=== PATIENT | female | born 1935 | race Caucasian/White ===

== ENCOUNTER 2021-08-14 16:21 | Inpatient (IN) | payer MEDICARE, OTHER ==
[~2021-08-14] VITALS: Ht 162.6 cm; Wt 97.3 kg
[2021-08-14] MEDS ORDERED: XARELTO15 MG PO (16:28)
[2021-08-14] MEDS ORDERED: TYLENOL 500MG500 MG PO (16:29)
[2021-08-14] MEDS ORDERED: DICLOFENAC SODIUM TOP (16:30)
[2021-08-14] MEDS ORDERED: DILTIAZEM HCL PO (16:31)
[2021-08-14] MEDS ORDERED: DULCOLAX STOOL100 MG PO (16:32)
[2021-08-14] MEDS ORDERED: FISH OIL PO (16:33)
[2021-08-14] MEDS ORDERED: LASIX 80MG TABL80 MG PO (16:33)
[2021-08-14] MEDS ORDERED: LASIX 40MG TABL40 MG PO (16:34)
[2021-08-14] MEDS ORDERED: TIROSINT112 MC1 PO (16:35)
[2021-08-14] MEDS ORDERED: ZESTRIL 10MG10 MG PO (16:36)
[2021-08-14] MEDS ORDERED: PRILOTC PO (16:37)
[2021-08-14] MEDS ORDERED: TOPROL XL 50MG50 MG PO (16:37)
[2021-08-14] MEDS ORDERED: POTASSIUM CHLORIDE PO ×2 (16:38→16:39)
[2021-08-14] MEDS ORDERED: ROSUVASTATIN PO (16:40)
[2021-08-14] MEDS ORDERED: XARELTO20 MG PO (16:41)
[2021-08-14] MEDS ORDERED: DETROL LA4 PO (16:41)
[2021-08-14 18:27] VITALS: BP 122/86; PULSE 84; TEMP 98.2
--- NOTE | 2021-08-14 19:19 | NUR ---
Pt. arrived to [facility] at approx 1800. She arrived via transportation bus and was in a wheelchair. Pt. transferred to bed in room using 2 person assistance and gait belt. Daughter and son-in-law at the bedside. Pt. is alert & oriented. Denies any pain. Admission assessment and intake completed. Dinner tray ordered by SCENE AND LIGHTING DESIGN LECTURER. Orientation to unit and room, call light, visiting policy provided to patient who verbalized understanding. She denies further needs at this time. Call light is within her reach
--- NOTE | 2021-08-14 19:30 | NUR ---
PT RESTING IN BED. SEE MAR FOR TYLENOL#3 GIVEN BY DUY PINEDA RN. FOR LT HIP PAIN. WAITING FOR EVENING MEAL TO COME. CALL LIGHT IN REACH. BED ALARM SET.
[2021-08-15 05:45] VITALS: BP 129/65; PULSE 86; TEMP 98.2
--- NOTE | 2021-08-15 06:04 | NUR ---
PT HAS SLEPT WELL THIS SHIFT. OFFERED PAIN MED- DECLINED. CECILIA CHANGED OUT THIS AM. URINE HAS BEEN SUFFICIENT QUANITIES/ CLEAR YELLOW.
--- NOTE | 2021-08-15 12:04 | NUR ---
Assessment completed, alert/oriented, vital signs stable, reports moderate left hip discomfort/ treating with Tylenol#3, left hip incision/wound has a wound vac in place, has multiple skin tears to BUE/ BLE and dressing in place per physician orders, TEODORO wraps to BLE for compression, using external femal cather while in bed for incontinence, she is a x1 assist up with walker, sitting up eating lunch in recline and just finished session with PT, denies needs
[2021-08-15 12:15] LABS: CALCIUM 8.8 mg/dL (8.4-10.2); CREATININE, serum 0.8 mg/dL (0.57-1.11); MAGNESIUM 2.1 mg/dL (1.6-2.6)
--- NOTE | 2021-08-15 14:42 | NUR ---
structural steel trades worker attempted to meet with patient x3. Unable to speak with patient to complete intake today. Will attempt tomorrow.
[2021-08-15 18:00] VITALS: BP 109/55; PULSE 86; TEMP 98.4
--- NOTE | 2021-08-15 18:48 | NUR ---
RECEIVED CHANGE OF SHIFT REPORT FROM DAY SHIFT RN.
--- NOTE | 2021-08-15 23:56 | NUR ---
HAD REPORTED FELT DISCOMFORT TO LLE "LIKE SOMETHING LEANING OR HITTING MY LEG". OBSERVED BED LINENS AND ICE BAG TO LATERAL L HIP IN CONTACT WITH LLE. SEE MAR FOR PAIN MED GIVEN. DENIES ANY OTHER NEEDS. PURE WICK IN PLACE, DRAINING CLEAR MED YELLOW URINE.
[2021-08-16 05:07] VITALS: BP 129/85; PULSE 92; TEMP 98.5
--- NOTE | 2021-08-16 05:32 | NUR ---
PURE WICK REMOVED, BRIEFS PLACED ON PATIENT, PATIENT INSTRUCTED TO CALL STAFF WHEN READY TO USE BATHROOM FACILITIES.
--- NOTE | 2021-08-16 07:00 | NUR ---
CHANGE OF SHIFT REPORT GIVEN TO DAY SHIFT RNORALIA.
--- NOTE | 2021-08-16 07:01 | NUR ---
Shift report recevied from concrete block layer RN. Pt. sleeping supine in bed. Call light is within her reach
--- NOTE | 2021-08-16 07:22 | NUR ---
Wound vac drainage collection is full. Serous, yellow drainage noted in collection chamber and in tubing. No additional wound vac supplies were given to pt. prior to d/c from [facility]. supervisor engine repair and M/S charge nurse aware. Will contact daughter.
--- NOTE | 2021-08-16 07:29 | NUR ---
Spoke with daughter, Val. She was not given any wound vac supplies prior to discharge. Will speak with Ashley upon her arrival
--- NOTE | 2021-08-16 08:06 | NUR ---
Pt. resting in bed. She has just completed her breakfast. She denies any pain. Last dose of pain med was given around 3 hours ago. She denies nausea. Wound vac drainage system remains full. Jeovany wraps to BLE are CDI; BLE elevated on pillows. Pt. denies further needs at this time. Call light is within her reach
--- NOTE | 2021-08-16 09:49 | NUR ---
Spoke with [facility]; they would like to continue Wound Vac for pt. IPR webbing supervisor will warp picker replacement wound vac this afternoon and bring back to pt.
--- NOTE | 2021-08-16 10:19 | NUR ---
Pt. assisted back to bed from recliner. She denies pain or discomfort at this time. Dressings and robert wrap to BLE are CDI. Left leg elevated on pillow. She denies further needs at this time. Call light is within her reach
--- NOTE | 2021-08-16 10:25 | NUR ---
donation worker met with patient to complete intake. Patient reports that she lives in a low income housing area in [facility]. Her home is a single level with her biggest complaint being her tub/shower. States that she has a hard time with this and that she and a few other tenants of the complex have spoken with the management staff about converting their tubs to walk in showers but that "they haven't gotten anywhere". Patient reports that prior to her fall she was independent with her ADL's and utilizes a cane to assist with ambulation. Patient reports to having no home oxygen needs but she is currently on 1.5 L during interaction. This appears to be reduced from yesterday. PCP is Dr. Walton and she utilizes [facility] for medications with no cost difficulty. Patient states that she does have a DPOA-HC established listing her daughter Val ([phone]). Unable to locate a copy in the patients EMR or her chart. Spoke with the patient about PT's recommendation at this time of going home with HH services. Patient reports that she has never had HH before but is open to the idea. SW informed patient that a list of agencies that service [place] will be provided to her closer to discharge.
[2021-08-16 10:47] LABS: MEAN CELL VOLUME 98 fl (80.0-100.0); MEAN CORPUSCULAR HGB CONC 32 g/dl (33.0-37.0); MEAN PLATELET VOLUME 10.1 fl (7.4-10.4); PLATELET COUNT 294 K/mm3 (130-400); RED BLOOD COUNT 3.13 M/mm3 (4.10-5.30); REDCELL DISTRIBUTION WIDTH-CV 13.9 % (11.5-14.5)
[2021-08-16 10:50] LABS: HEMATOCRIT 30.8 % (37.0-47.0); HEMOGLOBIN 9.8 g/dl (12.5-16.0); MEAN CORPUSCULAR HEMOGLOBIN 31 pg (27-31)
[2021-08-16 10:52] LABS: CALCIUM 8.5 mg/dL (8.4-10.2); CREATININE, serum 0.72 mg/dL (0.57-1.11); POTASSIUM 3.9 mmol/L (3.5-4.5)
[2021-08-16 11:09] LABS: BAND 1 % (0-10); LYMPHOCYTE 15 % (20.0-51.0); NEUTROPHILS 73 % (42.0-75.2); NUCLEATED RED BLOOD CELL 1 (0-6)
[2021-08-16 11:12] LABS: HYPOCHROMIA 2+; PLATELET ESTIMATE NORMAL (NORMAL)
[2021-08-16 11:15] LABS: BURR CELLS 1+
--- NOTE | 2021-08-16 11:44 | NUR ---
Pt. is back in her room after PT. She is resting in her recliner with both feet elevated. Jeovany wraps to BLE are CDI. She denies pain currently but would "maybe" like something for pain after her afternoon PT session. Ice pack placed to left hip. Pt. denies further needs at this time. Call light is within her reach
--- NOTE | 2021-08-16 14:02 | NUR ---
Pt. assisted from recliner to bed. She has completed all therapies for the day. She reports feeling tired. PRN pain medication and ice pack to left hip given. She denies any further needs at this time. Call light is within her reach
--- NOTE | 2021-08-16 16:18 | NUR ---
Pt. resting in bed with left leg elevated on pillow. Pt. repositioned for pressure relief. She denies pain or discomfort at this time. She continues with ice application to left hip. Wound vac container leaking serous fluid. Pt. denies further needs at this time
--- NOTE | 2021-08-16 17:05 | NUR ---
Left hip incision orders received per [facility] recommendations. Wound vac removed from left hip. 30 intact verito noted. Incision looks well approximated. No redness, swelling, warmth. Incision site cleaned with wound cleanser. Two 4x4 dressings & abd pad applied over stapled incision. Dressing secured with foam tape. Wound vac cover cleaned & placed with pt. belongings. Unable to measure amt of drainage in collection chamber as the drainage appeared crystallized.
[2021-08-16 17:37] VITALS: BP 122/66; PULSE 96; TEMP 98.2
[2021-08-17 05:25] VITALS: BP 115/69; PULSE 99; TEMP 97.9
--- NOTE | 2021-08-17 06:35 | NUR ---
ASSUMED CARE OF PATIENT AFTER RECEIVING BEDSIDE REPORT. PATIENT RESTING COMFORTABLY IN BED. PATIENT DENIES PAIN. PUREWICK PLACED FOR OVERNIGHT TO PREVENT SKIN BREAK DOWN, PATIENT TOLERATED WELL. DRESSING REMAINED CLEAN, DRY, AND INTACT OVER NIGHT, PREVEENA WAS NOT REPLACED AT THE TIME OF THIS NOTE. BEDSIDE REPORT TO BE GIVEN TO ONCOMING SHIFT.
--- NOTE | 2021-08-17 16:00 | NUR ---
Received report from hourly shift. Patient alert and oriented. Patient felt dizzy, clammy, and ill during therapy. Patient was returned to room and placed on toilet. Patient's vital signs and blood sugar taken. Both WNL. Patient was placed in bed. Leg wraps changed. Patient has +3 edema in BLE. Patient's skin has multiple skin tears on upper and lower extremities. Changed patient's dressing on left hip to an Aquacell. Patient resting in bed and complains of a headache. Tylenol given. Will continue to monitor.
[2021-08-17 17:37] VITALS: BP 98/65; PULSE 104; TEMP 98.4
--- NOTE | 2021-08-17 18:49 | NUR ---
RECEIVED CHANGE OF SHIFT REPORT FROM DAY SHIFT RN. BED ALARM ON, CALL LIGHT WITHIN REACH.
--- NOTE | 2021-08-17 23:48 | NUR ---
PATIENT SLEEPING, EXIT ALARM ON WHILE IN BED, CALL LIGHT WITHIN REACH. DOES NOT WAKE WITH DOOR OPENING BY NURSING STAFF ON ROUNDS. BREATHING NONLABORED AND EVEN.
[2021-08-18 04:47] VITALS: BP 98/55; PULSE 96; TEMP 97.8
--- NOTE | 2021-08-18 06:45 | NUR ---
CHANGE OF SHIFT REPORT GIVEN TO DAY SHIFT RNANDREW.
--- NOTE | 2021-08-18 11:05 | NUR ---
Received report from bush regenerator. Patient alert and oriented x4. Assessment performed. Patient denies pain at this time. Lungs CTA, bowel sounds present. Surgical site with aquacell applied has some drainage. Blood pressure meds and lasix held due to low bp. Patient encouraged to drink fluids. Will continue to monitor BP. Call light near.
[2021-08-18 18:00] VITALS: BP 106/52; PULSE 103; TEMP 98.2
--- NOTE | 2021-08-18 18:54 | NUR ---
RECEIVED CHANGE OF SHIFT REPORT FROM DAY SHIFT NURSE. PATIENT RESTING IN BED WITH EXIT ALARM ON AND CALL LIGHT WITHIN REACH. DENIES CHEST PAIN/SOA/L HIP PAIN AT TIME OF REPORT. PATIENT UP TO BATHROOM WITH SBA REQUIRING SOME ASSIST GETTING BACK INTO BED.
--- NOTE | 2021-08-18 22:25 | NUR ---
PATIENT ARRIVED TO ROOM 342 VIA EMS. DAUGHTER PRESENT, PATIENT REPORTED HAS RIGHT HIP PAIN THAT INCREASED WITH MOVEMENT.
--- NOTE | 2021-08-19 02:42 | NUR ---
PATIENT SLEEPING, DOES NOT WAKE WHEN DOOR TO ROOM IS OPENED BY NURSING ON ROUNDS. EXIT ALARM ON, CALL LIGHT WITHIN REACH. BREATHING NONLABORED AND EVEN.
[2021-08-19 05:16] VITALS: BP 116/68; PULSE 107; TEMP 97.5
[2021-08-19 06:32] LABS: MEAN CELL VOLUME 98 fl (80.0-100.0); MEAN CORPUSCULAR HGB CONC 32 g/dl (33.0-37.0); PLATELET COUNT 372 K/mm3 (130-400); RED BLOOD COUNT 2.98 M/mm3 (4.10-5.30); REDCELL DISTRIBUTION WIDTH-CV 14.1 % (11.5-14.5)
[2021-08-19 06:43] LABS: HEMATOCRIT 29.2 % (37.0-47.0); HEMOGLOBIN 9.4 g/dl (12.5-16.0); MEAN CORPUSCULAR HEMOGLOBIN 32 pg (27-31)
[2021-08-19 06:52] LABS: C-REACTIVE PROTEIN 2.42 mg/dL (0.00-0.50); CALCIUM 8.3 mg/dL (8.4-10.2); CREATININE, serum 0.66 mg/dL (0.57-1.11); MAGNESIUM 1.9 mg/dL (1.6-2.6); POTASSIUM 3.4 mmol/L (3.5-4.5)
--- NOTE | 2021-08-19 07:06 | NUR ---
CHANGE OF SHIFT REPORT GIVEN TO DAY SHIFT RNORALIA.
--- NOTE | 2021-08-19 07:10 | NUR ---
Shift report received from wood tool maker RN. Pt. awake in bed and talking on her cellphone. She denies pain or discomfort. Call light is within her reach
[2021-08-19 08:28] LABS: HYPOCHROMIA 1+; LYMPHOCYTE 20 % (20.0-51.0); NEUTROPHILS 75 % (42.0-75.2); PLATELET ESTIMATE NORMAL (NORMAL)
--- NOTE | 2021-08-19 08:43 | NUR ---
Pt. resting in bed. Denies pain this morning. Pt. ambulated with nurse to bathroom and then back to bed. Dressing to left hip saturated with serous drainage; gauge 4x4 x2, abd. pad, and foam tape placed over intact verito to left hip. Left hip incision is not red or warm. Jeovany wraps and mepilex dressing to BLE removed for dr's assessment. New mepilex dressings x 2 replaced to skin tears to LLE. Mepitel dressings to RLE and R. heel are CDI. Jeovany wraps replaced to BLE. Pt. denies further needs for now. Call light is within her reach
--- NOTE | 2021-08-19 10:25 | NUR ---
Prevena 125 wound vac replaced to left hip incision. Foam dressing compressed.
--- NOTE | 2021-08-19 13:27 | NUR ---
Admission QIM scores were reviewed by the team. Code of 4 chosen for oral hygiene was determined by team discussion to be the most usual performance for this patient during the assessment period. Code of 3 chosen for toilet hygiene was determined by team discussion to be the most usual performance for this patient during the assessment period. Code of 88 chosen for toileting transfers was determined by team discussion to be the most usual performance for this patient during the assessment period. Code of 88 chosen for shower/bathe self was determined by team discussion to be the most usual performance before interventions for this patient during the assessment period. Code of 88 chosen for rolling left to right was determined by team discussion to be the most usual performance before interventions for this patient during the assessment period. Code of 2 chosen for sit to lying was determined by team discussion to be the most usual performance before interventions for this patient during the assessment period. Code of 2 chosen for lying to sitting on side of bed was determined by team discussion to be the most usual performance for this patient during the assessment period.--Vane Riley, PD
--- NOTE | 2021-08-19 14:27 | NUR ---
Senior Procurement Manager met with patient to follow up from the weekend. Patient states things are going well, although she did get tired easily today. Patient denies any questions or concerns at this time.
[2021-08-19 17:57] VITALS: BP 100/66; PULSE 97; TEMP 98.2
--- NOTE | 2021-08-19 19:11 | NUR ---
RECEIVED CHANGE OF SHIFT REPORT FROM DAY SHIFT RN.
[2021-08-20 05:34] VITALS: BP 128/80; PULSE 66; TEMP 98.4
--- NOTE | 2021-08-20 06:57 | NUR ---
Shift report received from shift commander RN. Pt. awake, lying supine in bed. She denies pain. Call light within her reach
--- NOTE | 2021-08-20 07:03 | NUR ---
CHANGE OF SHIFT REPORT GIVEN TO DAY SHIFT RNORALIA.
--- NOTE | 2021-08-20 15:32 | NUR ---
Pt. is sleeping in bed. She has completed all PT, OT, ST for the day. Wound vac dressing remains compressed. Jeovany wraps to BLE are CDI. Ice pack present to left hip. Pt. denies pain or discomfort. She denies further needs. Call light is within her reach
[2021-08-20 17:44] VITALS: BP 126/65; PULSE 71; TEMP 97.5
--- NOTE | 2021-08-21 01:34 | NUR ---
PATIENT ALERT AND ORIENTED. MEDS ADMINISTERED PER EMAR. DENIES NEED FOR PAIN MEDS. ICE IN PLACE TO L HIP. WOUND VAC TO L HIP INTACT. STANDBY ASSIST WITH WALKER TO RESTROOM THROUGHOUT NIGHT. BUE BRUISING AND SEVERAL SKIN TEARS NOTED. DENIES FURTHER NEEDS. CALL LIGHT IN REACH.
[2021-08-21 05:09] VITALS: BP 140/87; PULSE 100; TEMP 98.2
[2021-08-21 06:32] LABS: CALCIUM 8.3 mg/dL (8.4-10.2); CREATININE, serum 0.63 mg/dL (0.57-1.11); POTASSIUM 3.4 mmol/L (3.5-4.5)
--- NOTE | 2021-08-21 15:02 | NUR ---
Hazardous Substances Engineer met with patient to review and provide copy of team conference notes. SW reviewed tentative discharge date of 08/28/21 and patient is agreeable to this. SW advised recommendations are for home health and a front wheeled walker, which SW will assist with. SW also discussed scheduling a family meeting and patient would like her daughter, Val to participate. SHAILESH contacted Val and scheduled meeting for Thursday at 0930. Val to participate by phone.
--- NOTE | 2021-08-21 16:37 | NUR ---
PT RESTING QUIETLY IN BED @ THIS TIME. PT HAS HAD VISITORS THIS AFTERNOON ET HAS BEEN TALKING ON THE PHONE. WOUND VAC IS IN PLACE TO LEFT HIP, DRESSING CDI. PT HAS BEEN UP TO BR NUMEROUS TIMES DURING DAY WITH MINIMUM ASSISTANCE, GAIT BELT ET WALKER. IS SOMETIMES CONTINENT OF URINE ET SOMETIMES INCONTINENT. PT DID HAVE A MEDIUM BM THIS MORNING. RESPIRATIONS UNLABORED. CALL LIGHT WITHIN REACH.
[2021-08-21 17:32] VITALS: BP 129/83; PULSE 107; TEMP 97.8
--- NOTE | 2021-08-22 00:52 | NUR ---
PATIENT ALERT AND ORIENTED. C/O PAIN TO R NI. TEODORO WRAP WAS REMOVED, PRN TYLENOL GIVEN, LOTION APPLIED. PAIN RESOLVING. TEODORO WRAP REMAINS OFF. STANDBY ASSIST WITH WALKER UP TO BATHROOM THROUGHOUT NIGHT. HS MEDICATIONS PER EMAR.
[2021-08-22 05:33] VITALS: BP 141/79; PULSE 89; TEMP 97.8
[2021-08-22 17:31] VITALS: BP 124/74; PULSE 92; TEMP 98.1
--- NOTE | 2021-08-22 21:00 | NUR ---
PT RESTING IN BED. DOZING. NO COMPLAINTS TONIGHT. CHANGED MEPILEX DRSG TO RT LOWER POSTERIOR LEG- SKIN TEAR. TOOK OFF RIGHT HEEL DRSG. SL RED. FLOATED HEELS ON PILLOWS. TEODORO WARPS OFF BILAT LEGS-NO EDEMA. EDEMATOUS FEET NOTED. CALL LIGHT IN REACH. BED ALARM SET.
--- NOTE | 2021-08-23 03:30 | NUR ---
SEE MAR FOR TYLENOL GIVEN FOR LT HIP PAIN.
[2021-08-23 05:49] VITALS: BP 137/81; PULSE 98; TEMP 97.9
--- NOTE | 2021-08-23 13:16 | NUR ---
Facility Manager Histology participated in patient's family meeting which included her daughter, Val by phone. EL Cifuentes Director opened the meeting by explaining it's purpose then Dr. Orosco reviewed patient's medical status. PT/OT/ST reviewed patient's progress and SHAILESH reviewed discharge recommendations which are for Home Health services. SW provided patient with Medicare.gov list of HH agencies that serve [place]. SW also advised tentative discharge date is set for Thursday and that SW will assist with ordering a front wheeled walker. Patient is agreeable to plan. SW followed up with patient's daughter, Val and reviewed list of HH agencies. Val advised they would like to use [facility] and order the walker through [facility]. SHAILESH contacted demetrice at [facility] and faxed referral.
[2021-08-23 17:23] VITALS: BP 132/77; PULSE 100; TEMP 98.2
--- NOTE | 2021-08-23 17:45 | NUR ---
PT IS IN BED, TALKING TO HER DAUGHTER ON HER CELL PHONE. PT REQUESTS TYLENOL FOR HIP PAIN. PT HAS NOT EATEN BUT A FEW BITES OF HER DINNER, IS ENCOURAGED TO EAT MORE BUT PT STATES THAT SHE DOESN'T LIKE IT. PT IS OFFERED SOUP OR OTHER FOODS ET REFUSES, STATES SHE IS NOT HUNGRY @ THIS TIME, HAS DRANK GRAPE JUICE. DENIES NEEDS. PT IS MOD-I ET HAS BEEN INDEPENDENT IN HER ROOM. RESPIRATIONS UNLABORED. CALL LIGHT WITHIN REACH.
--- NOTE | 2021-08-23 20:36 | NUR ---
PT RESTING IN BED. MOD I IN ROOM. NO NEEDS AT THIS TIME. CALL LIGHT IN REACH.
[2021-08-24 05:14] VITALS: BP 114/74; PULSE 91; TEMP 98.2
--- NOTE | 2021-08-24 07:10 | NUR ---
Shift report recived from night monitor RN. Pt. resting in bed, awake. She denies pain or discomfort. Call light and fww are within her reach. She denies further needs at this time
[2021-08-24 09:41] LABS: CALCIUM 8.5 mg/dL (8.4-10.2); CREATININE, serum 0.73 mg/dL (0.57-1.11); MAGNESIUM 1.8 mg/dL (1.6-2.6); POTASSIUM 3.2 mmol/L (3.5-4.5)
--- NOTE | 2021-08-24 10:03 | NUR ---
Pt. sitting at bedside. Has just returned from ambulated from toilet. She denies pain or discomfort. Non-pitting edema noted to right lat. ankle. Wound vac dressing remains compressed and connected to collection chamber. Pt. is waiting to go to group (PT) therapy. She denies further needs at this time. Call light is within her reach
--- NOTE | 2021-08-24 14:13 | NUR ---
Pt. is sitting up at bedside after ambulating in her room. Wound vac dressing remains compressed and connected to drainage collection system. She denies pain or discomfort. Denies further needs. Call light is within her reach
[2021-08-24 16:51] VITALS: BP 132/88; PULSE 91; TEMP 98.2
--- NOTE | 2021-08-24 18:51 | NUR ---
NOTIFIED ANIBAL MCDUFFIE OF K+ LEVEL THIS AM. ORDER FOR REPEAT NOTED.
--- NOTE | 2021-08-24 18:53 | NUR ---
PT NOTIFED OF REPEAT LAB DRAW FOR POTASSIUM. PT RESTING IN BED. NO DISTRESS. CALL LIGHT IN REACH. NO NEEDS AT THIS TIME.
--- NOTE | 2021-08-24 19:48 | NUR ---
K+ LEVEL 3.7.
--- NOTE | 2021-08-25 00:39 | NUR ---
SEE MAR FOR TYLENOL GIVEN FOR BACK PAIN LEVEL 2/10
[2021-08-25 05:37] VITALS: BP 135/76; PULSE 95; TEMP 97.6
--- NOTE | 2021-08-25 06:39 | NUR ---
SEE MAR FOR TYLENOL GIVEN FOR LT HIP PAIN.
--- NOTE | 2021-08-25 06:49 | NUR ---
SHIFT REPORT RECEIVED FROM SWISS TYPE SCREW MACHINE OPERATOR RN. PT. IS AWAKE & LYING IN BED. SHE REPORTS THAT SHE SLEPT WELL OVERNIGHT. DENIES PAIN AT THIS TIME. DENIES FURTHER NEEDS. CALL LIGHT IS WITHIN HER REACH
--- NOTE | 2021-08-25 09:21 | NUR ---
Pt. resting supine in bed with HOB elevated approx 30 degrees. She is watching television. She denies pain or discomfort at this time. Wound vac dressing remains compressed and connected to drainage collection. She denies further needs at this time. Call light is within her reach
[2021-08-25 16:51] VITALS: BP 106/72; PULSE 93; TEMP 99.3
[2021-08-26 05:53] VITALS: BP 116/79; PULSE 102; TEMP 98
--- NOTE | 2021-08-26 05:58 | NUR ---
SEE MAR FOR TYLENOL GIVEN FOR LT HIP PAIN. PT HAD UNEVENTFUL NIGHT.
--- NOTE | 2021-08-26 08:52 | NUR ---
Assessment completed, alert/oriented, vital signs stable, reports minimal Left hip pain this morning, wound vac remains in place/ possible discontinuation today and will discuss with physician, she is sitting up at edge of the bed and has had breakfast and morning medicaitons given, she is Mod-I in her room and doing really well, she dneies other needs at this time
--- NOTE | 2021-08-26 15:12 | NUR ---
Wood Borer was contacted by Harriet with [facility] who advised they do not have OT available in [place] at this time. SHAILESH followed up with patient's daughter Val who advised they would prefer either [facility] or [facility] next. SHAILESH contacted [facility] and was advised they also do not have OT available. SHAILESH contacted [facility] and faxed referral. Kayla with [facility] advised they have PT/OT and Nursing available and can accept referral. SHAILESH contacted Val to provide update. SHAILESH contacted [facility] and faxed referral/order for FWW. SHAILESH advised [facility] that family would be in to pick up attendant the walker this week. SHAILESH met with patient to check in and provide update. Patient is looking forward to going home on Thursday.
--- NOTE | 2021-08-26 16:14 | NUR ---
Patient doing well this afternoon, had some mild disocomfort following her last PT session for the day/ treated with Tylenol and she reported relief, I called / Orthopedic clinin in [place] to discuss removing her wound vac and removing verito/ I left a voice message and have not received a call back yet/ and I notified of this
[2021-08-26 17:12] VITALS: BP 132/87; PULSE 93; TEMP 97.7
--- NOTE | 2021-08-27 01:01 | NUR ---
PATIENT ALERT AND ORIENTED. HAS BEEN MOD I IN ROOM. HS MEDS GIVEN. PRN TYLENOL BEFORE BED. GENERALIZED BRUISING THROUGHOUT AND MEPILEX TO SKIN TEARS. DENIES NEEDS. CALL LIGHT IN REACH.
[2021-08-27 05:45] VITALS: BP 153/73; PULSE 117; TEMP 97.6
--- NOTE | 2021-08-27 07:30 | NUR ---
Patient sitting up on the side of bed eatting breakfast. A&Ox3. VSS. Reports pain in left hip, pain medication given as requested. Incision lf hip cdi and wound vac intact. Independent with feeds and in the room. Call light within reach
--- NOTE | 2021-08-27 15:24 | NUR ---
Hat Band Attacher spoke with Kayla at [facility] who advised she would visit patient today. SW met with patient to present and review IM. Patient verbalized understanding and signed IM. SHAILESH placed form in chart and provided copy to patient. Patient to discharge home tomorrow with services.
[2021-08-27 17:06] VITALS: BP 130/96; PULSE 100; TEMP 98
--- NOTE | 2021-08-27 17:33 | NUR ---
Patient independent in the room and worked with therapy and tolerated well. A&Ox3. VSS. Denies pain and discomfort. Wound vac to left hip CDI. Independent with feeds. No further needs expressed. Call light within reach
--- NOTE | 2021-08-28 00:48 | NUR ---
PATIENT IN BED. A&O X4. NEW ORDER FOR CT WITH CONTRAST PLACED, IV STARTED TO L AC FOR CONTRAST, AND REMOVED AFTER BACK FROM SCAN. HAS BEEN INDEPENDENT IN ROOM. HS MEDICATIONS PER EMAR. PRN TYLENOL FOR LEG/HIP PAIN. L FA SKIN TEAR DRESSING CHANGED, XEROFORM+MEPILEX APPLIED.
[2021-08-28 05:24] VITALS: BP 120/88; PULSE 96; TEMP 97.9
--- NOTE | 2021-08-28 07:15 | NUR ---
SHIFT REPORT RECEIVED FROM UX DEVELOPER DESIGNER RN. PT. SLEEPING IN BED. CALL LIGHT IS WITHIN HER REACH
[2021-08-28] MEDS ORDERED: XARELTO15 MG PO (09:12)
[2021-08-28] MEDS ORDERED: ZESTRIL2.5 MG PO (09:14)
--- NOTE | 2021-08-28 13:18 | NUR ---
Handbag Parts Cutter contacted [facility] and faxed discharge orders. Patient is scheduled to be seen tomorrow. SW contacted patient's daughter, Val and confirmed FWW was picked up. No additional needs at this time.
--- NOTE | 2021-08-28 18:04 | NUR ---
Pt. discharged from unit at 1652; accompanied by her daughter. Home Med,Health Summary, and Discharge Summary reviewed with pt. and her daughter. Reviewed home medications and follow-up appointments. Discussed the importance of keeping her upcoming f/u with ortho this Thursday. Pt. and daughter v/u. Pt. escorted to vehicle via wheelchair and seatbelted for ride home
== END 2021-08-28 16:52 | disposition home health service (06) | DRG 559 ==
PROVIDERS: Internal Medicine; Physician Assistant; ADMIT Physical Medicine & Rehabilitation Sports Medicine
DX: S72.142D Displaced intertrochanteric fracture of left femur, subsequent encounter for closed fracture with routine healing (principal); J96.01 Acute respiratory failure with hypoxia; I50.32 Chronic diastolic (congestive) heart failure; I11.0 Hypertensive heart disease with heart failure; W06.XXXD Fall from bed, subsequent encounter; Y92.003 Bedroom of unspecified non-institutional (private) residence as the place of occurrence of the external cause; Z73.6 Limitation of activities due to disability; Z66 Do not resuscitate; R26.89 Other abnormalities of gait and mobility; I48.0 Paroxysmal atrial fibrillation; E03.9 Hypothyroidism, unspecified; Z88.8 Allergy status to other drugs, medicaments and biological substances; Z79.01 Long term (current) use of anticoagulants; Z79.899 Other long term (current) drug therapy; Z60.2 Problems related to living alone; Z96.642 Presence of left artificial hip joint; S81.812D Laceration without foreign body, left lower leg, subsequent encounter; S81.811D Laceration without foreign body, right lower leg, subsequent encounter; N32.89 Other specified disorders of bladder; K59.00 Constipation, unspecified; K21.9 Gastro-esophageal reflux disease without esophagitis; E87.6 Hypokalemia; D64.89 Other specified anemias; E87.5 Hyperkalemia; I95.2 Hypotension due to drugs; T50.2X5A Adverse effect of carbonic-anhydrase inhibitors, benzothiadiazides and other diuretics, initial encounter; Y92.230 Patient room in hospital as the place of occurrence of the external cause
CPT/HCPCS: 99222; 99231-AI; 99232-AI; 99233-AI; A9284; Q9967